=== PATIENT | male | born 1950 | race Caucasian/White ===

== ENCOUNTER → 2017-03-29 | Outpatient (CLI) | payer BC ==
[~2017-03-29] MED LIST: ADVIL PM 38 MG-1 TAB PO; ANTIDEPRESANT; ASPIRIN 32325 MG/TAB PO; CEPHALEXIN500 M1 PO; CHANTIX 1MG1 MG PO; COUMADIN 2MG2 MG/TAB PO; LEXAPRO20 MG PO; MAGNESIUM250 M1 PO; MELATONIN5 MG PO; MOTRIN 800800 MG/TAB PO; NO HOME MEDICATIONS; NORCO 325 MG-51 TAB PO; NORCO 325 MG-7.1 TAB PO; PERCOCET 325 MG1 TA2 PO; PHENERGAN 25 TA25 MG PO; ROXICODONE 55 MG/TAB PO; SLEEP AID25 M1 PO; TYLENOL PM EXTR1 TA1 PO; VITAMIN D3400 I1 PO; ZOFRAN 4MG T4 MG/TAB PO; ZQUIL; [UNRECOGNIZED DRUG - REMARK]
== END ==
LOC: COL.RAD 14:33
DX: M19.042 Primary osteoarthritis, left hand (principal); M19.032 Primary osteoarthritis, left wrist; M18.11 Unilateral primary osteoarthritis of first carpometacarpal joint, right hand; M19.041 Primary osteoarthritis, right hand; Z87.81 Personal history of (healed) traumatic fracture

== ENCOUNTER 2018-02-17 14:54 | Outpatient (CLI) | payer BC ==
[~2018-02-17 14:54] MED LIST changes: +MASON NATURAL2000 IU PO; -VITAMIN D3400 I1 PO
[2018-02-17] MEDS ORDERED: NATURE'S BLEND100 M2 PO (15:38)
[2018-02-17 16:09] VITALS: BP 130/61; PULSE 63; TEMP 98.3
== END 2018-02-17 16:47 | disposition home or self-care (01) ==
LOC: EUO 14:54
DX: M81.0 Age-related osteoporosis without current pathological fracture (principal)
CPT/HCPCS: J3489

== ENCOUNTER 2019-02-20 14:57 | Outpatient (CLI) | payer BC ==
[~2019-02-20] VITALS: Ht 165.1 cm; Wt 74.0 kg
[~2019-02-20 14:57] MED LIST changes: +NATURE'S BLEND100 M2 PO
[2019-02-20 15:15] VITALS: BP 142/92; PULSE 87; TEMP 97.9
== END 2019-02-20 16:34 | disposition home or self-care (01) ==
LOC: EUO 14:57
DX: M81.0 Age-related osteoporosis without current pathological fracture (principal)
CPT/HCPCS: J3489

== ENCOUNTER → 2019-02-22 | Outpatient (CLI) | payer BC | LOC: COL.CARD 13:33 → COL.RAD 13:33 → COL.CARD 14:00 | DX: R05 Cough (principal) ==

== ENCOUNTER → 2019-03-12 | Outpatient (CLI) | payer BC | LOC: COL.VAS 03-08 09:15 | DX: I48.91 Unspecified atrial fibrillation (principal); I48.3 Typical atrial flutter; I10 Essential (primary) hypertension ==

== ENCOUNTER → 2019-08-27 | Outpatient (CLI) | payer BC ==
[2019-08-27 09:38] LABS: BASO # 0.1 (0.0-0.2); BASO % 0.8 % (0.0-2.0); EOS # 0.2 (0.0-0.7); GRAN # 4.2 (1.4-6.5); GRAN % 70.7 % (42.2-75.2); HEMATOCRIT 47.2 % (42.0-52.0); HEMOGLOBIN 15.8 g/dl (13.5-18.0); MEAN CELL VOLUME 107 fl (80.0-100.0); MEAN CORPUSCULAR HEMOGLOBIN 36 pg (27.0-31.0); MEAN CORPUSCULAR HGB CONC 34 g/dl (33.0-37.0); MEAN PLATELET VOLUME 11.3 fl (7.4-10.4); MONO # 0.5 (0.1-0.6); MONO % 7.7 % (1.7-9.3); PLATELET COUNT 54 K/mm3 (130-400); RED BLOOD COUNT 4.43 M/mm3 (4.20-5.60); REDCELL DISTRIBUTION WIDTH-CV 14.5 % (11.5-14.5)
[2019-08-27 09:52] LABS: ALBUMIN 4.4 gm/dL (3.5-5.0); BILIRUBIN,TOTAL 0.5 mg/dL (0.0-1.0); CREATININE, serum 0.72 (0.66-1.25); POTASSIUM 4.9 mmol/L (3.4-5.0); TOTAL PROTEIN 7.8 gm/dL (6.4-8.2)
== END ==
LOC: COL.LAB 09:10
PROVIDERS: Internal Medicine
DX: E29.1 Testicular hypofunction (principal); R00.1 Bradycardia, unspecified; M81.0 Age-related osteoporosis without current pathological fracture

== ENCOUNTER → 2020-03-05 | Outpatient (CLI) | payer BC | LOC: COL.RAD 12:00 | DX: R74.8 Abnormal levels of other serum enzymes (principal) ==

== ENCOUNTER → 2020-03-28 | Outpatient (CLI) | payer BC ==
[2020-03-28 11:25] LABS: CREATININE, serum 0.87 (0.66-1.25)
== END ==
LOC: COL.LAB 10:24
DX: K76.9 Liver disease, unspecified (principal)

== ENCOUNTER → 2020-04-01 | Outpatient (CLI) | payer BC | LOC: COL.RAD 03-31 07:30 | DX: D35.01 Benign neoplasm of right adrenal gland (principal); D35.02 Benign neoplasm of left adrenal gland; K80.20 Calculus of gallbladder without cholecystitis without obstruction; K76.89 Other specified diseases of liver | CPT/HCPCS: Q9967 ==

== ENCOUNTER 2021-02-13 17:21 | Emergency (ER) | payer BC ==
[~2021-02-13] VITALS: Ht 172.7 cm; Wt 75.0 kg
[2021-02-13 18:18] VITALS: TEMP 98
[2021-02-13 19:35] LABS: ALBUMIN 4.2 gm/dL (3.4-4.8); BILIRUBIN,TOTAL 0.4 mg/dL (0.2-1.2); CALCIUM 10.1 mg/dL (8.4-10.2); CREATININE, serum 0.87 mg/dL (0.72-1.25); POTASSIUM 4.3 mmol/L (3.5-4.5); TOTAL PROTEIN 7.4 gm/dL (6.2-8.1)
[2021-02-13 20:06] LABS: BASO % 0.7 % (0.0-2.0); EOS # 0.2 K/mm3 (0.0-0.7); EOS % 4.1 % (0-4.0); GRAN # 3.9 K/mm3 (1.4-6.5); GRAN % 71.8 % (42.2-75.2); HEMATOCRIT 40.8 % (42.0-52.0); HEMOGLOBIN 13.9 g/dl (13.5-18.0); LYMPH # 0.9 K/mm3 (1.2-3.4); LYMPH % 16.7 % (20.0-51.0); MEAN CELL VOLUME 100 fl (80.0-100.0); MEAN CORPUSCULAR HEMOGLOBIN 34 pg (27.0-31.0); MEAN CORPUSCULAR HGB CONC 34 g/dl (33.0-37.0); MEAN PLATELET VOLUME 10.7 fl (7.4-10.4); MONO # 0.4 K/mm3 (0.1-0.6); MONO % 6.5 % (1.7-9.3); RED BLOOD COUNT 4.07 M/mm3 (4.20-5.60); REDCELL DISTRIBUTION WIDTH-CV 12.5 % (11.5-14.5)
[2021-02-13 20:32] LABS: PLATELET COUNT 28 K/mm3 (130-400)
[2021-02-13] MEDS ORDERED: PREDNISONE20 MG PO (21:15)
[2021-02-13 21:28] VITALS: BP 141/95; PULSE 99
[2021-02-13 21:44] LABS: C-REACTIVE PROTEIN 0.32 mg/dL (0.00-0.50)
== END 2021-02-13 21:28 | disposition home or self-care (01) ==
LOC: COL.ER 17:21
PROVIDERS: Personal Emergency Response Attendant; Physician Assistant
DX: D69.6 Thrombocytopenia, unspecified (principal); F10.10 Alcohol abuse, uncomplicated; I10 Essential (primary) hypertension; F17.290 Nicotine dependence, other tobacco product, uncomplicated; Z90.49 Acquired absence of other specified parts of digestive tract
CPT/HCPCS: J7512

== ENCOUNTER → 2021-03-18 | Outpatient (CLI) | payer BC ==
[~2021-03-18] MED LIST changes: +PREDNISONE20 MG PO
== END ==
LOC: COL.RAD 07:35
DX: D69.6 Thrombocytopenia, unspecified (principal)

== ENCOUNTER 2021-04-30 13:57 | Outpatient (CLI) | payer BC ==
[~2021-04-30] VITALS: Ht 172.7 cm; Wt 76.0 kg
[2021-04-30 14:32] VITALS: BP 119/78; PULSE 91; TEMP 99.2
[2021-04-30] MEDS ORDERED: TOPROL XL 50MG50 MG PO (14:42)
[2021-04-30] MEDS ORDERED: REVIA 50MG TABL50 MG PO (14:43)
[2021-04-30] MEDS ORDERED: ZOLOFT 100MG100 MG PO (14:43)
[2021-04-30] MEDS ORDERED: VASOTEC 5MG5 MG/TAB PO (14:44)
[2021-04-30] MEDS ORDERED: SEROQUEL50 MG PO (14:44)
[2021-04-30] MEDS ORDERED: REMERON 15M15 MG/TA1 PO (14:44)
== END 2021-04-30 15:20 ==
LOC: EUO 13:57
DX: M81.0 Age-related osteoporosis without current pathological fracture (principal)
CPT/HCPCS: J3489

== ENCOUNTER 2022-04-28 10:57 | Outpatient (CLI) | payer MEDICARE, OTHER ==
[~2022-04-28] VITALS: Ht 172.7 cm; Wt 78.5 kg
[~2022-04-28 10:57] MED LIST changes: +REMERON 15M15 MG/TA1 PO; +REVIA 50MG TABL50 MG PO; +SEROQUEL50 MG PO; +TOPROL XL 50MG50 MG PO; +VASOTEC 5MG5 MG/TAB PO; +ZOLOFT 100MG100 MG PO
[2022-04-28 11:30] VITALS: BP 153/95; PULSE 87; TEMP 98.9
--- NOTE | 2022-04-28 12:20 | NUR ---
PT INFUSION COMPLETE. RESPIRATIONS EVEN AND UNLABORED. IV REMOVED. PT AMBULATED EVENLY TO ELEVATOR
== END 2022-04-28 12:20 | disposition home or self-care (01) ==
LOC: EUO 10:57
DX: M81.0 Age-related osteoporosis without current pathological fracture (principal)
CPT/HCPCS: J3489